=== PATIENT | male | born 1990 | race Caucasian/White ===

== ENCOUNTER 2018-08-31 09:35 | Emergency (ER) | payer SELFPAY ==
[~2018-08-31] VITALS: Ht 170.2 cm; Wt 70.3 kg
[2018-08-31] MEDS ORDERED: LORAZEPAM 2 MG/1 ML VIAL ONE (10:08)
[2018-08-31] MEDS ORDERED: LORAZEPAM 2 MG/1 ML VIAL IV ONE (10:15)
[2018-08-31] MEDS ORDERED: LIDOCAINE HCL 2% 20 ML VIAL TP ONE (10:15)
--- NOTE | 2018-08-31 10:25 | NUR ---
IV removed. Catheter intact and site benign. Pressure and 4x4 gauze applied to site. No bleeding noted.
--- NOTE | 2018-08-31 10:26 | NUR ---
Patient discharged to home in stable conditon. Written and verbal after care instructions given. Patient verbalizes understanding of instructions.
== END 2018-08-31 10:29 | disposition home or self-care (01) ==
LOC: ER 09:40
DX: L02.413 Cutaneous abscess of right upper limb (principal); F11.10 Opioid abuse, uncomplicated; Z88.8 Allergy status to other drugs, medicaments and biological substances
CPT/HCPCS: A4663; J2060

== ENCOUNTER 2018-09-01 19:07 | Emergency (ER) | payer SELFPAY ==
[~2018-09-01] VITALS: Ht 175.3 cm; Wt 77.1 kg
--- NOTE | 2018-09-01 19:28 | NUR ---
Dr. North at bedside for MSE.
[2018-09-01] MEDS ORDERED: LORAZEPAM 0.5 MG TABLET PO ONE (19:30)
[2018-09-01] MEDS ORDERED: LORAZEPAM 0.5 MG TABLET ONE (19:34)
--- NOTE | 2018-09-01 19:47 | NUR ---
Patient discharged to home in stable conditon. Written and verbal after care instructions given. Patient verbalizes understanding of instructions. Pt ambulated out of ER with steady gait, no acute signs of distress, VSS, all belongings taken.
[2018-09-01 19:50] VITALS: BP 100/68
== END 2018-09-01 19:51 | disposition home or self-care (01) ==
LOC: ER 19:09
DX: L02.413 Cutaneous abscess of right upper limb (principal); Z48.01 Encounter for change or removal of surgical wound dressing; F11.10 Opioid abuse, uncomplicated; Z88.8 Allergy status to other drugs, medicaments and biological substances
CPT/HCPCS: A4663

== ENCOUNTER 2018-09-03 12:35 | Emergency (ER) | payer SELFPAY ==
[~2018-09-03] VITALS: Ht 172.7 cm; Wt 72.6 kg
--- NOTE | 2018-09-03 13:02 | NUR ---
Dr Bragg at the bedside for MSE.
[2018-09-03] MEDS ORDERED: LET TOPICAL SOLUTION 8 ML UDC ONE ×2 (13:09→13:16)
[2018-09-03] MEDS ORDERED: KETOROLAC TROMETHAMINE 30 MG INJ ONE (13:11)
[2018-09-03] MEDS ORDERED: LET TOPICAL SOLUTION 8 ML UDC TP ONE (13:15)
[2018-09-03] MEDS ORDERED: KETOROLAC TROMETHAMINE 30 MG INJ IM ONE (13:15)
[2018-09-03] MEDS ORDERED: LORAZEPAM 2 MG/1 ML VIAL IM ONE (13:45)
[2018-09-03] MEDS ORDERED: LORAZEPAM 2 MG/1 ML VIAL ONE (13:46)
--- NOTE | 2018-09-03 14:20 | NUR ---
Remove dressing and packing per Md order, cleaned and applied new dressing.
[2018-09-03 14:29] VITALS: BP 112/77
--- NOTE | 2018-09-03 14:41 | NUR ---
Patient discharged to home in stable conditon. Written and verbal after care instructions given. Patient verbalizes understanding of instructions.
== END 2018-09-03 14:42 | disposition home or self-care (01) ==
LOC: ER 12:35
DX: L02.413 Cutaneous abscess of right upper limb (principal); Z48.01 Encounter for change or removal of surgical wound dressing; F11.10 Opioid abuse, uncomplicated; Z88.8 Allergy status to other drugs, medicaments and biological substances
CPT/HCPCS: A4663; J1885; J2060

== ENCOUNTER 2021-12-24 14:40 | Emergency (ER) | payer SELFPAY ==
[~2021-12-24] VITALS: Ht 172.7 cm; Wt 70.3 kg
--- NOTE | 2021-12-24 14:46 | NUR ---
PT IS IN ROOM #1B. DR ANDRE EVALUATED THE PT.
--- NOTE | 2021-12-24 15:25 | NUR ---
PT DECIDE TO LEAVE HOSPITAL AMA. DR ANDRE EXPLAINED ALL RISKS OF LEVING HOSPITAL ER AMA. PT VERBALIZED FULL UNDERSTANDING. PT SIGNED AMA FORM AND LEFT HOSPITAL BY [facility]AX[place]. GAIT WAS STABLE. NO S/S OF DISTRESS AT THIS TIME. NO SOB. NO N/V. NO DIZZINESS. PT DENIES PAIN.
[2021-12-24 15:28] VITALS: BP 132/79
== END 2021-12-24 15:29 | disposition left against medical advice (07) ==
LOC: ER 14:40
DX: T40.411A Poisoning by fentanyl or fentanyl analogs, accidental (unintentional), initial encounter (principal); R06.81 Apnea, not elsewhere classified; Y92.414 Local residential or business street as the place of occurrence of the external cause; F19.10 Other psychoactive substance abuse, uncomplicated; F32.A Depression, unspecified; Z53.29 Procedure and treatment not carried out because of patient's decision for other reasons
CPT/HCPCS: A4663